=== PATIENT | male | born 1940 | race Caucasian/White ===

== ENCOUNTER 2016-07-01 17:00 | Inpatient (IN) | payer MEDICARE, OTHER ==
[~2016-07-01] VITALS: Ht 175.3 cm; Wt 70.0 kg
--- NOTE | ~2016-07-01 | ESTC ---
Cardiac Perfusion Imaging Demographics Patient Name LAISHA Tan Gender Male Patient Number [id number] Race Visit Number [id number] Ethnicity Corporate ID Room Number G6323 Accession Number [id number] Height 69 inches Date of 1940 Weight 154 pounds Physician Interpreting Joel Tate Date of study 07/02/2016 Physician Supervising /ANAT Tamez Technologist Ordering Physician Joel Tate Stress Josseline Kang MD instrumentation and control technician RT,RVT,RDCS Stress ECG Reading Frantz Jimenez APRN Nurse Shira Chiu RN Physician The procedure was explained in detail to the patient. Risks, complications and alternative treatments were reviewed. Written consent was obtained. Medications Reviewed with Patient prior to Procedure. Procedure Procedure Type: Nuclear Stress Test:Exercise, Cardiolite Stress Test Procedure Start time: 07/02/2016 00:00 Indications: Chest pain. Risk Factors The patient risk factors include:prior PCI on 05/02/1993;prior CABG on 05/02/2003;hypertension, diabetes mellitus and dyslipidemia. Conclusions Summary Distal third of the anteroseptal mild defect involving a small area most consistent with soft tissue attenuation.Medium inferolateral moderate defect most consistent with soft tissue attenuation except basal inferior wall which is most consistent with prior ND. LVEF:48%. Basal inferior wall is moderately hypokinetic. Stress Protocols Resting ECG Normal sinus rhythm. Resting HR:78 bpm Resting BP:181/86 mmHg Pre-stress physical exam: Patient assessed by Balta RILEY prior to testing. Chest - CTA Cardio - RRR, S1, S1 Stress Protocol:Exercise Peak HR:130 bpm HR response: Appropriate Peak BP:182/84 mmHg BP response: Appropriate Predicted HR: 143 bpm HR/BP product:60462 % of predicted HR: 91 Test duration:09:00 min Reason for termination:Target heart rate ECG Findings No ECG changes suggestive of ischemia. Arrhythmias Occasional PVC's at peak exercise. Symptoms Shortness of breath. Complications Procedure complication: None. Stress Interpretation Walked 6 minutes through 2 stages of sena protocol. Appropriate hemodynamic response to exercise. No significant ST-T wave changes with exercise. EKG portion is negative for ischemia by diagnostic criteria. The Morales Treadmill score was 6 .This corresponds to a low risk stress test. Will correlate with nuclear images. Imaging Results High risk findings Summed scores - Summed stress score: 5 - Summed rest score: 4 - Summed difference score: 1 Stress ejection Ejection fraction:48 % EDV :143 ml ESV :75 ml Stroke volume :68 ml LV mass :169 gr LV size:Normal LV systolic function impairment: Mild Imaging Protocols Rest Stress Isotope:Tc99m Sestamibi IV Isotope: Tc99m Sestamibi IV Isotope dose:10.6 mCi Isotope dose:32.5 mCi Date:07/02/2016 07:50 Date:07/02/2016 09:45 Technique: SPECT Technique: Gated Supine SPECT Supine IV remains in place after procedure. Scan Time:30 minutes post injection Scan Time:45-60 minutes post injection Medical History Admission Data Admission date: 07/01/2016 Admission Time: 18:03 Hospital Status: Inpatient. Signatures dtt: Lea Maldonado dtd: 07/02/16 0000 Physician Self Edit
--- NOTE | ~2016-07-01 | CON ---
PATIENT'S NAME: MELINDA INTERIANO [facility] AGE: 75 Y [address] ROOM: [place] [address] LOCATION: GPCU ADMIT DATE: 07/01/2016 Consultation DISCHARGE DATE: FAMILY PHYSICIAN: Jose Mandujano MD ATTENDING PHYSICIAN: CRUZ SAUL DATE OF CONSULTATION: 07/02/2016 CHIEF COMPLAINT: Bilateral hydronephrosis. HISTORY OF PRESENT ILLNESS: The patient is a pleasant 75-year-old male who is transferred for further evaluation of chest pain. The patient was having right shoulder pain as well as an elevated serum creatinine level of 1.7; and so, an abdominal ultrasound was obtained, which revealed significant bilateral hydronephrosis and a large distended urinary bladder. He has been voiding although reports that he has noted some weakening of his urinary stream over the years. He does also report significant nocturia every 2 hours in the evening. He states that during the daytime he can go 3-4 hours without having to void. He denies any gross hematuria. He denies any difficulties with urinary tract infection. He denies any significant family history of prostate cancer. He denies any personal history of undergoing any procedures for his prostate. He does report some occasional right flank pain. He denies any history of nephrolithiasis. He does report a remote history of renal trauma following getting hit while he was playing football with some blood in his urine. He has also noted some occasional episodes of nocturnal enuresis. He denies any history of acute urinary retention. He has not previously been trialed on any medications for BPH. The patient has no further questions or concerns at this time. PAST MEDICAL HISTORY: 1. History of coronary artery disease. 2. Hyperlipidemia. 3. Hypertension. PAST SURGICAL HISTORY: 1. Appendectomy. 2. Cyst removed from lumbar region. 3. Left open knee meniscus repair in 1961. 4. Carpal tunnel surgery. 5. Tonsillectomy. 6. Left knee arthroscopy. 7. Cataract surgery. 8. Coronary artery bypass graft 3-vessel in 2003. PATIENT'S NAME: MELINDA INTERIANO [facility] AGE: 75 Y [address] ROOM: [address] [place] [id number] LOCATION: GPCU ADMIT DATE: 07/01/2016 Consultation DISCHARGE DATE: FAMILY PHYSICIAN: Jose Mandujano MD ATTENDING PHYSICIAN: CRUZ SAUL FAMILY HISTORY: The patient denies any known family history of genitourinary abnormalities or malignancies including no family history of prostate cancer. SOCIAL HISTORY: The patient is . The patient is still working as a rancher. The patient denies any alcohol abuse. He denies any tobacco use. REVIEW OF SYSTEMS: A full 10+ point review of systems was performed with pertinent positive and negative findings included in history of present illness. All other systems were reviewed and are otherwise negative. ALLERGIES: NO KNOWN DRUG ALLERGIES. MEDICATIONS: See attached hospitalization medication reconciliation. PHYSICAL EXAMINATION: VITAL SIGNS: Temperature is 98.6 degrees Fahrenheit, pulse 70, blood pressure 156/65, respiratory rate 20, and oxygen saturation 94% on room air. His weight is 154 pounds and his height is 5 feet, 9 inches. CONSTITUTIONAL: No acute distress. Hemodynamically stable. HEENT: Extraocular muscles intact. Mucous membranes moist. No drainage per ears or nose. CARDIAC: Good peripheral perfusion. No tachycardia. RESPIRATORY: No audible wheezing or stridor. Respirations do not appear labored. ABDOMEN: Soft, nontender. He does have what feels like on palpation a distended bladder up to the level just below his umbilicus. GENITOURINARY: Normal uncircumcised penis with no skin lesions noted. His meatus is normal in size and location with no urethral discharge. Testes are palpably normal bilaterally with no testicular masses palpable. DIGITAL RECTAL EXAM: Normal sphincter tone. The prostate was without any obvious nodules or induration. His prostate was enlarged and greater than 45- 50 g in size. The prostate was mildly firm throughout. MUSCULOSKELETAL: Moves all extremities. NEUROLOGIC: No focal deficits noted. HEMATOLOGIC: No bruising or active sites of bleeding. PSYCHIATRIC: Answers questions appropriately with normal affect. IMPRESSION: 1. Bilateral hydronephrosis. PATIENT'S NAME: MELINDA INTERIANO [facility] AGE: 75 Y [address] ROOM: [address] [place], [place] [address] [facility]ATION: [facility] ADMIT DATE: 07/01/2016 Consultation DISCHARGE DATE: FAMILY PHYSICIAN: Jose Mandujano MD ATTENDING PHYSICIAN: CRUZ SAUL 2. Urinary retention. 3. Benign prostatic hyperplasia. 4. Renal insufficiency. PLAN: I had a long discussion today with the patient and family regarding my findings. Given findings on ultrasound consistent with bilateral hydronephrosis, likely secondary to bladder outlet obstruction, we will have the nurse check a postvoid residual with likely placement of indwelling Shah catheter if continues to remain elevated. In the meantime, we will also plan to get him started on tamsulosin 0.4 mg daily. I also briefly discussed additional treatment options for BPH with the family including UroLift procedure, transurethral resection of prostate, and photovaporization of prostate. We will tentatively plan to leave the Shah catheter indwelling for at least 1 week and plan to see him back next Tuesday in my Urology Clinic for cystoscopy as well as possible trial of void at that time. The family's questions and concerns were addressed and they have no further at this time. Please do not hesitate to call me with any questions or concerns. SHOBHA MACKEY MD GP/modl /[id number] d: 07/02/16 2243 t: 07/04/16 1156, CONSULTATION REPORT
--- NOTE | ~2016-07-01 | ECHO ---
Transthoracic Echocardiography Report (TTE) Demographics Patient Name MELINDA INTERIANO Date of Study 07/02/2016 Patient Number [id number] Visit Number [id number] Date of 1940 Room Number G6323 Gender Male Number Age 75 year(s) Referring Joel Tate Location Man Josseline Kang, Physician RT,RVT,RDCS Physician Interpreting Joel Tate Dough Braker Physician MD Supervising Ordering [facility] /MLP Physician Nurse Stress Preservative Filler Machine Operator Conclusions Contractility Score Summary At rest the following contractility abnormalities were noted: Hypokinesis of the Mid anterior, the Mid keeley-septal, the Mid infero-septal, the Apical septal, the Basal keeley-septal, the Basal infero-septal and the Basal anterior segments. Contractility of all other segments appeared normal. Summary The estimated left ventricular ejection fraction is 50-55% with normal WM. Moderate concentric left ventricular hypertrophy.LV internal dimensions are normal. Mildly dilated RA. Mild RV hypokinesia. There is mild aortic regurgitation by color Doppler. Mild tricuspid regurgitation by color Doppler. Procedure Type of Study TTE procedure:2D Echocardiogram, M-Mode, Doppler , Color Doppler. Procedure Date Date: 07/02/2016 Start: 06:42 AM Study Location: Inpatient Portable Technical Quality: Adequate visualization Indications:Chest pain. Appropriate Use Criteria: 9 Patient Status: Routine HR: 69 bpm BP: 160/82 mmHg M-Mode/2D Measurements LV Diastolic Dimension: 4.9 cm LV Systolic Dimension: 3.88 cm LV Septum Diastolic: 1.41 cm LV Septum Systolic: 1.49 cm LV PW Diastolic: 1.18 cm LV PW Systolic: 1.65 cm Cardiac Output: 4.47 l/min AO Root Dimension: 3.2 cm RV Diastolic Dimension: 3.19 cm LA Dimension: 4 cm EF Estimated: 55 % LA volume: 45 ml LVOT: 2.1 cm LVOT VTI: 18.7 cm LV Stroke volume: 64.74 ml Doppler Measurements AV Peak Velocity: 0.97 m/s MV Peak E-Wave: 0.59 m/s AV Peak Gradient: 3.72 mmHg MV Peak A-Wave: 1.04 m/s AV Mean Gradient: 2 mmHg MV E/A Ratio: 0.56 LVOT Peak Velocity: 0.78 m/s MV P1/2t: 106 msec AV P1/2t: 360 msec TR Gradient:14.59 mmHg PV Peak Velocity: 1.43 m/s Estimated RAP:10 mmHg PV Peak Gradient: 8.18 mmHg Estimated RVSP: 25 mmHg Estimated PASP: 24.59 mmHg E' Septal Velocity: 0.03 m/s A' Septal Velocity: 0.1 m/s MV E/E' Ratio: 20.6 Findings Left Ventricle Moderate concentric left ventricular hypertrophy with normal EF,internal dimensions and WM. Right Ventricle RV is mildly hypokinetic. Left Atrium Normal left atrial size. Right Atrium Mildly dilated RA. Mitral Valve Normal mitral valve structure and function. Aortic Valve There is mild aortic regurgitation by color Doppler. Tricuspid Valve Mild tricuspid regurgitation by color Doppler. Pulmonic Valve Normal pulmonic valve structure and function. Pericardial Effusion No evidence of pericardial effusion. Miscellaneous Visualized portions of the aortic root and ascending aorta appear normal in size. Pleural Effusion No evidence of pleural effusion. Contractility Score LV regional wall motion:(0-Non visualized 1-Normal 2-Hypokinesis 3-Akinesis 4-Dyskinesis 5-Aneurysm) Signature dtt: Lea Maldonado dtd: 07/02/16 0642 Physician Self Edit
--- NOTE | ~2016-07-01 | HP ---
PATIENT'S NAME: MELINDA INTERIANO [facility] AGE: 75 Y [address] ROOM: [place] [address] LOCATION: GPCU ADMIT DATE: 07/01/2016 History & Physical DISCHARGE DATE: FAMILY PHYSICIAN: PHYSICIAN, UNKNOWN ATTENDING PHYSICIAN: CRUZ SAUL DATE OF SERVICE: CHIEF COMPLAINT: Chest pain. HISTORY OF PRESENT ILLNESS: This is a 75-year-old male with history of coronary artery disease, status post CABG in 2003 presents for evaluation of chest pain. 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 He reports that while he was working on the farm yesterday evening, he started noticing some right-sided chest tightness with radiation to his neck. This pain was exacerbated by activity and relieved with rest. The patient took the rest of the day off yesterday and in the morning went back to work on his farm and started to have the same symptoms, which at that point the made the patient go to the emergency room. The patient was evaluated at [facility]. Initial troponin and EKG were nondiagnostic, but noting that the patient is high risk for acute coronary syndrome, had contacted his cardiology physician, Dr. Mann, and he was transferred over here for further evaluation. During my evaluation here, the patient is comfortable, resting without any issues. Denies any ongoing chest pain at this moment. Denies any dizziness, lightheadedness, shortness of breath. Denies any nausea, vomiting, diaphoresis as well. Appetite is good. Tolerating p.o. intake well. No fever or chills reported. PAST MEDICAL HISTORY: 1. Coronary artery disease, status post CABG in 2003. 2. Hyperlipidemia. FAMILY HISTORY: The patient has a history of heart disease in the parents. SOCIAL HISTORY: The patient lives at home with . Fairly active individual. Denies active usage of tobacco smoking, alcohol, or drug use. REVIEW OF SYSTEMS: A 10-point review of systems was conducted and were all negative except as described in the HPI. PATIENT'S NAME: MELINDA INTERIANO [facility] AGE: 75 Y [address] ROOM: [place] [address] LOCATION: GPCU ADMIT DATE: 07/01/2016 History & Physical DISCHARGE DATE: FAMILY PHYSICIAN: PHYSICIAN, UNKNOWN ATTENDING PHYSICIAN: CURZ SAUL PHYSICAL EXAMINATION: VITAL SIGNS: Blood pressure 165/73, heart rate 76, respiratory rate 18, saturating 98% on room air. GENERAL: The patient is awake, alert, and oriented x3, in no acute distress. HEENT: Moist mucous membranes. No scleral icterus. No conjunctival pallor noted. SKIN: Without rash or lesions. HEART: S1 and S2. Regular rate and rhythm. LUNGS: Clear to auscultation bilaterally. ABDOMEN: Soft, nontender, and nondistended. Positive bowel sounds. EXTREMITIES: Without edema. MUSCULOSKELETAL: No joint pain or muscle tenderness noted. NEURO: Grossly nonfocal. EKG: Nondiagnostic per report from [facility]. Initial troponin there was negative as well. ASSESSMENT AND PLAN: 1. Unstable angina. The patient with known high risk factors for acute coronary syndrome including history of bypass surgery in 2003. EKG and troponin are nondiagnostic. Chest pain symptoms are pretty typical of it. At this point, we will trend troponins and to repeat an EKG. The patient currently is not complaining of chest pain at rest. He is on a heparin drip, which he came with and will continue this. The patient is to be evaluated by Dr. Gallego, cardiology physician, and he will be risk stratified either with a stress test and/or cardiac cath. We will start the patient on aspirin, low dose as well as low-dose beta yoko to try to maintain resting heart rate of 65-70. 2. Coronary artery disease. Management as above. The patient currently not having chest pain while at rest. 3. Hyperlipidemia. We will get fasting lipid panel in the morning. We will continue the patient on statin therapy. 4. Deep venous thrombosis prophylaxis. Continue heparin drip per ACS protocol. MD LYNDA HERNANDEZ/modl /[id number] D: 056 T: 925 HISTORY & PHYSICAL
--- NOTE | ~2016-07-01 | DS ---
PATIENT'S NAME: MELINDA INTERIANO [facility] AGE: 75 Y [address] ROOM: G6[address] [place], [place] [address] LOCATION: GPCU ADMIT DATE: 07/01/2016 Discharge Summary DISCHARGE DATE: 07/03/2016 FAMILY PHYSICIAN: Jose Mandujano MD ATTENDING PHYSICIAN: Munira Perez DISCHARGE DIAGNOSES: 1. Atypical chest pain. 2. Obstructive uropathy. 3. Bilateral hydronephrosis secondary to acute urinary retention. 4. Benign prostatic hyperplasia. 5. Coronary artery disease, status post coronary artery bypass graft. 6. Right shoulder pain likely due to rotator cuff tendinopathy vs AC arthritis DISCHARGE MEDICATIONS: 1. Aspirin 325 mg daily (new medication). 2. Flomax 0.4 mg daily (new medication). 3. Pravastatin 20 mg daily. 4. Carvedilol 6.25 mg po BID (new medication). HOSPITALIZATION COURSE: 1. Chest pain: This is a 75-year-old male with history of coronary artery disease, status post CABG in 2003, who presented to the emergency room with complaint of chest pain. Given his cardiac history, he was evaluated by a cashier self service gasoline. His cardiac enzymes were negative x3. He had an echocardiogram that was done showing EF 50% to 55% with normal wall motion. Moderate concentric left ventricular hypertrophy was noted. Mild aortic regurgitation noted. Lexiscan stress test showed distal 3rd of anteroseptal mild defect involving a small area most consistent with soft tissue attenuation. Medium inferolateral moderate defect most consistent with soft tissue attenuation except basal inferior wall which is most consistent with prior CT, EF 48%. Basal inferior wall is moderately hypokinetic. No acute ischemia noted. 2. Acute kidney injury: During the hospitalization, the patient was noted to have acute kidney injury with creatinine of 1.8. He was also noted to have hematuria. An ultrasound of the kidneys show bilateral hydronephrosis secondary to enlarged prostate. Urology was consulted and at this point, the plan is to discharge the patient with a Shah catheter and started on Flomax. Cr at discharge was 1.8. 3. Right shoulder pain: The patient was ruled out for any acute coronary syndrome. X ray did not show any significant fracture or dislocation. There is a suspicion of a chronic rotator cuff tear. Patient was advised to follow up with primary care physician to consider further imaging and ortho referral. He can take Tylenol for shoulder pain. PATIENT'S NAME: MELINDA INTERIANO [facility] AGE: 75 Y [address] ROOM: [address] [place], [place] [address] LOCATION: GPCU ADMIT DATE: 07/01/2016 Discharge Summary DISCHARGE DATE: 07/03/2016 FAMILY PHYSICIAN: Jose Mandujano MD ATTENDING PHYSICIAN: Munira Perez FOLLOWUP INSTRUCTIONS: 1. Follow up with Dr. Junior on July 09, 2016 for cystoscopy and consider to remove Shah catheter at the [facility]. 2. Follow up with PCP in [place] in 3 to 5 days with repeat BMP as well as ortho referral. 3. No restriction in diet or activity. 4. Shah is to gravity with Neosporin to meatus 3 times a day. Catheter hygiene was told to the patient. DIET: Regular. ACTIVITY: Ad kenia. CONDITION AT DISCHARGE: Stable. JOSE DUGAN MD BA/modl /[id number] cc: Jose Mandujano MD d: 07/04/16 0102 t: 07/04/16 1715, DISCHARGE SUMMARY
--- NOTE | ~2016-07-01 | CON ---
PATIENT'S NAME: MELINDA INTERIANO [facility] AGE: 75 Y [address] ROOM: [address] [place], [place] [address] [facility] ADMIT DATE: 07/01/2016 Consultation DISCHARGE DATE: FAMILY PHYSICIAN: PHYSICIAN, UNKNOWN ATTENDING PHYSICIAN: CRUZ SAUL DATE OF CONSULTATION: 07/01/[address] Jose Mandujano. 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 He was seen by Dr. Mann when he went up there, and he had him transferred over with heparin on board to see if he could have further evaluation here. When he got here, he is pain free. It appears as if he was in his usual state of health up until yesterday morning when he woke up and developed right shoulder pain when he started to do his chores, which lasted almost all day long. When he rested in the evening and went to sleep, it seemed to have gone away. This started again when he started doing his chores this morning. So, he went to the hospital in [place]. He does have a history of rotablator done in 1993. He had a 3-vessel bypass grafting in 2003. He never had an NM. There is no history of rheumatic fever, heart murmur, heart failure, dilated or enlarged heart, or any diagnosed arrhythmias. His blood pressure generally is not a problem, but today it has been elevated. He is not a diabetic, and his cholesterol is known to be elevated, and he has been taking Pravachol. He is a nonsmoker, and there is no family history of premature coronary artery disease. MEDICATIONS: 1. Pravachol 20 mg a day. 2. Ibuprofen 400 mg a day, which he quit taking about 6 months ago. Prior to that, he took it for a year and a half. ALLERGIES: NO KNOWN DRUG ALLERGIES. PAST MEDICAL HISTORY: 1. Appendectomy. 2. Cyst removed from the lumbar region. 3. Left knee open meniscus repair in 1960. 4. Carpal tunnel release. 5. Tonsillectomy. PATIENT'S NAME: MELINDA INTERIANO [facility] AGE: 75 Y [address] ROOM: [address] [address] LOCATION: GPCU ADMIT DATE: 07/01/2016 Consultation DISCHARGE DATE: FAMILY PHYSICIAN: PHYSICIAN, UNKNOWN ATTENDING PHYSICIAN: CRUZ SAUL 6. Left knee arthroscopy. 7. Cataract surgery on one eye. 8. Surgery on his eardrum. SOCIAL HISTORY: The patient is . He is a rancher. He denies abusing alcohol. His appetite and weight are stable. Sleep is poor because he gets up every 2 hours for now due to nocturia. FAMILY HISTORY: No premature coronary artery disease. REVIEW OF SYSTEMS: A 12-point review of systems revealed DJD and occasional sinus problem. PHYSICAL EXAMINATION: VITAL SIGNS: On examination, his blood pressure is 170/80, heart rate is in the 90s and regular, respiration is 18, afebrile. HEENT: Normal. NECK: Supple with no JVD, thyromegaly, lymphadenopathy, or carotid bruit. HEART: PMI is not well located. First and second heart sounds are regular. There are no added sounds or murmurs. CHEST: Clear to auscultation. ABDOMEN: Soft, nontender. EXTREMITIES: Reveal no edema. CENTRAL NERVOUS SYSTEM: Intact. He is currently pain free. ASSESSMENT: A 75-year-old male patient with prolonged right shoulder pain yesterday and again another at least an hour to 2 hours of right shoulder pain that reoccurred this morning, currently pain free. He has so far ruled out myocardial infarction. We will repeat his enzymes, and if it is negative, we will proceed ahead with a stress Cardiolite study in the morning. On the other hand, if his enzymes are positive, we will proceed with cardiac catheterization as a next step. He should have an echocardiogram done in the morning as well. In the meantime, we will put him on aspirin, heparin, nitroglycerin, and atorvastatin. We will try and keep his systolic blood pressure within the normal range for now. Again, I appreciate this opportunity to participate in the care of Mr. Interiano. PATIENT'S NAME: MELINDA INTERIANO [facility] AGE: 75 Y [address] ROOM: [address] [address] LOCATION: GPCU ADMIT DATE: 07/01/2016 Consultation DISCHARGE DATE: FAMILY PHYSICIAN: PHYSICIAN, CUCA ATTENDING PHYSICIAN: CRUZ SAUL MD VALENTIN RICKS/tristanl /[id number] d: 07/02/16 0119 t: 07/06/16 1326, CONSULTATION REPORT
[2016-07-01 18:36] LABS: BASOPHIL # 0.1 K/uL (0.0-0.2); BASOPHIL % 0.8 %; EOSINOPHIL # 0.2 K/uL (0.0-0.5); EOSINOPHIL % 2.5 %; HEMATOCRIT 38.8 % (37.0-53.0); HEMOGLOBIN 12.6 g/dL (11.0-16.0); IMMATURE GRANULOCYTE % 0.2 %; LYMPHOCYTE # 1.3 K/uL (0.8-4.0); LYMPHOCYTE % 19.8 %; MCH 27.8 pg (27.0-34.0); MCHC 32.5 gm/dL (32.0-36.5); MCV 85.7 fl (83.0-98.0); MONOCYTE # 0.5 K/uL (0.0-1.0); MONOCYTE % 7.9 %; MPV 8.4 fl (9.4-12.4); NEUTROPHIL # (ANC) 4.4 K/uL (1.4-9.0); NEUTROPHIL % 68.8 %; NRBC % 0 /100WBC (0-0.00); PLATELET COUNT 292 K/uL (150-450); RBC 4.53 M/uL (3.50-5.50); RDW-CV 13.2 % (11.9-14.6); WBC 6.4 K/uL (4.0-11.0)
[2016-07-01 18:44] LABS: PROTIME 10.8 SECONDS (9.6-11.1)
[2016-07-01] MEDS ORDERED: PRAVACHOL20 MG PO (19:30)
[2016-07-01 20:33] LABS: ALBUMIN 3.6 gm/dL (3.5-5.0); ANION GAP 10.1 (10.0-19.0); BLOOD UREA NITROGEN 22 mg/dL (6-24); CHLORIDE 106 mMol/L (96-110); CO2 30 mMol/L (22-32); CREATININE 1.7 mg/dL (0.6-1.3); ESTIMATED GFR (MDRD EQUATION) 39; MAGNESIUM 2.2 mg/dL (1.3-2.6); PHOSPHORUS 2.9 mg/dL (2.5-4.9); POTASSIUM 4.1 mMol/L (3.7-5.1); SODIUM 142 mMol/L (135-145)
[2016-07-02 06:30] LABS: BASOPHIL # 0.1 K/uL (0.0-0.2); BASOPHIL % 0.8 %; EOSINOPHIL # 0.2 K/uL (0.0-0.5); EOSINOPHIL % 3.4 %; HEMATOCRIT 37.8 % (37.0-53.0); HEMOGLOBIN 12.2 g/dL (11.0-16.0); IMMATURE GRANULOCYTE % 0.2 %; LYMPHOCYTE # 1.1 K/uL (0.8-4.0); LYMPHOCYTE % 18.1 %; MCH 27.6 pg (27.0-34.0); MCHC 32.3 gm/dL (32.0-36.5); MCV 85.5 fl (83.0-98.0); MONOCYTE # 0.5 K/uL (0.0-1.0); MONOCYTE % 8.6 %; MPV 8.7 fl (9.4-12.4); NEUTROPHIL # (ANC) 4.3 K/uL (1.4-9.0); NEUTROPHIL % 68.9 %; NRBC % 0 /100WBC (0-0.00); PLATELET COUNT 279 K/uL (150-450); RBC 4.42 M/uL (3.50-5.50); RDW-CV 13.4 % (11.9-14.6); WBC 6.2 K/uL (4.0-11.0)
[2016-07-02 06:43] LABS: ALBUMIN 3.4 gm/dL (3.5-5.0); ANION GAP 10.3 (10.0-19.0); CREATININE 1.8 mg/dL (0.6-1.3); MAGNESIUM 2.3 mg/dL (1.3-2.6); PHOSPHORUS 3.3 mg/dL (2.5-4.9); POTASSIUM 4.3 mMol/L (3.7-5.1)
[2016-07-03 06:04] LABS: ANION GAP 13.3 (10.0-19.0); CALCIUM 8.8 mg/dL (8.5-10.5); CREATININE 1.8 mg/dL (0.6-1.3); POTASSIUM 4.3 mMol/L (3.7-5.1)
[2016-07-03] MEDS ORDERED: ASPIRIN325 MG PO (11:36)
[2016-07-03] MEDS ORDERED: FLOMAX0.4 MG PO (11:40)
[2016-07-03] MEDS ORDERED: PERCOCET 5-3251 EACH PO (12:26)
[2016-07-03 12:51] LABS: CPK 135 IU/L (35-332)
[2016-07-03] MEDS ORDERED: COREG6.25 MG PO (14:45)
== END 2016-07-03 15:10 | disposition disaster alternative care site (69) | DRG 313 ==
LOC: GPCU 18:02
PROVIDERS: Student in an Organized Health Care Education/Training Program; Urology; ADMIT Internal Medicine
DX: R07.9 Chest pain, unspecified (principal); I25.10 Atherosclerotic heart disease of native coronary artery without angina pectoris; N17.9 Acute kidney failure, unspecified; N13.30 Unspecified hydronephrosis; Z95.1 Presence of aortocoronary bypass graft; E78.5 Hyperlipidemia, unspecified; N40.1 Benign prostatic hyperplasia with lower urinary tract symptoms; R33.8 Other retention of urine; M25.511 Pain in right shoulder
CPT/HCPCS: A9500; J1644